=== PATIENT | female | born 1955 | race Caucasian/White ===

== ENCOUNTER 2018-02-27 04:25 | Emergency (ER) | payer BC ==
--- NOTE | 2018-02-27 04:34 | PDOC ---
Attending Attestation - ED Attending Attestation I have performed the following: I have examined & evaluated the patient, The case was reviewed & discussed with the resident, I agree w/resident's findings & plan
[2018-02-27 04:35] VITALS: BMI 30.2
[2018-02-27] MEDS ORDERED: methylPREDNISolone NA SUCC 125 MG/2 ML VIAL ONE (04:45)
[2018-02-27] MEDS ORDERED: FAMOTIDINE 20 MG/50 ML IVPB 20 MG/50 ML MG IVPB ONE ×2 (04:46→04:49)
[2018-02-27] MEDS ORDERED: methylPREDNISolone NA SUCC 125 MG/2 ML VIAL IVPUSH ONE (04:49)
[2018-02-27] MEDS ORDERED: SODIUM CHLORIDE 1,000 ML IV STA (04:53)
--- NOTE | 2018-02-27 04:57 | PDOC ---
History of Present Illness <Fiona Orourke - Last Filed: 02/27/18 08:54> - General History Source: Patient Exam Limitations: No Limitations - History of Present Illness Initial Comments: 02/27/18 04:52 HISTORY OF PRESENT ILLNESS: This 62-year-old woman he denies medical history presents emergency department for evaluation of throat itching and pruritus. Patient reports she was experiencing some frequency and dysuria and took Pyridium which was prescribed to work couple of months ago. After approximately 45 minutes after taking the Pyridium, patient didn't to experience itching in her throat and generalized pruritus. Patient denies difficulty swallowing, shortness of breath, drooling. She denies any new medications, soaps, shampoos, foods, cosmetics or laundry soaps or fabric softeners. No recent travel or sick contacts. PAST MEDICAL HISTORY: Denies past medical history SURGICAL HISTORY: Denies ALLERGIES: No known drug allergies REVIEW OF SYSTEMS General/Constitutional: Denies fever or chills. Denies weakness, weight change. HEENT: Denies change in vision. Denies ear pain or discharge. Denies sore throat. +throat itching. Cardiovascular: Denies chest pain or shortness of breath. Respiratory: Denies cough, wheezing, or hemoptysis. Gastrointestinal: Denies nausea, vomiting, diarrhea or constipation. Denies rectal bleeding. Genitourinary: +dysuria, frequency. Musculoskeletal: Denies joint or muscle swelling or pain. Denies neck or back pain. Skin and breasts: Generalized pruritis. Neurologic: Denies headache, vertigo, loss of consciousness, or loss of sensation. Psychiatric: Denies depression or anxiety. Endocrine: Denies increased thirst. Denies abnormal weight change. Hematologic/Lymphatic: Denies anemia, easy bleeding, or history of blood clots. Allergic/Immunologic: Denies hives or skin allergy. Denies latex allergy. PHYSICAL EXAM General Appearance: Well-appearing, appropriately dressed. No apparent distress , no intoxication. HEENT: EOMI, PERRLA, normal ENT inspection, normal voice, TMs normal, pharynx normal. No conjunctival pallor. No photophobia, scleral icterus. No oral edema noted. Neck: Supple. Trachea midline. No tenderness, rigidity, carotid bruit, stridor , lymphadenopathy, or thyromegaly. Respiratory/Chest: Lungs CTAB. No shortness of breath, chest tenderness, respiratory distress, accessory muscle use. No crackles, rales, rhonchi, stridor , wheezing, dullness Cardiovascular: RRR. S1, S2. No JVD, murmur, bradycardia, tachycardia. Vascular Pulses: Dorsalis-Pedis (R): 2+, Dorsalis-Pedis (L): 2+ Gastrointestinal/Abdominal: Normal bowel sounds. Abdomen soft, non-distended. No tenderness or rebound tenderness. No organomegaly, pulsatile mass, guarding, hernia, hepatomegaly, splenomegaly. Lymphatic: No adenopathy, tenderness. Musculoskeletal/Extremities: Normal inspection. FROM of all extremities, normal capillary refill. Pelvis Stable. No CVA tenderness. No tenderness to extremities, pedal edema, swelling, erythema or deformity. Integumentary: Appropriate color, dry, warm. No cyanosis, erythema, jaundice or rash. Multiple reddened areas to arms and trunk c/w scratching. Neurologic: irrigation equipment remover II-XII intact. Fully oriented, alert. Appropriate mood/affect. Motor strength 5/5. No appreciable EOM palsy, facial droop or sensory deficit. <Agapito Limon - Last Filed: 03/02/18 13:28> - General Chief Complaint: Allergic Reaction Stated Complaint: ALLERGIC REACTION Time Seen by Provider: 02/27/18 04:48 Past History <Fiona Orourke - Last Filed: 02/27/18 08:54> - Surgical History Cholecystectomy: Yes - Suicide/Smoking/Psychosocial Hx Smoking History: Never smoked Have you smoked in the past 12 months: No Information on smoking cessation initiated: No Hx Alcohol Use: No Drug/Substance Use Hx: No Substance Use Type: None Hx Substance Use Treatment: No <Agapito Limon - Last Filed: 03/02/18 13:28> - Past Medical History Allergies/Adverse Reactions: Allergies Allergy/AdvReac Type Severity Reaction Status Date / Time phenazopyridine Allergy Verified 02/27/18 05:00 [From Pyridium] Home Medications: Ambulatory Orders No Home Medications 0 dose .ROUTE UTDICT 04/01/13 Cephalexin Monohydrate [Keflex -] 500 mg PO BID #14 capsule 02/27/18 *Physical Exam - Vital Signs Last Vital Signs Temp Pulse Resp BP Pulse Ox 97.9 F 74 18 113/50 L 99 11/11/18 07:10 02/27/18 07:10 02/27/18 07:10 02/27/18 07:10 02/27/18 07:10 <Fiona Orourke - Last Filed: 02/27/18 08:54> - Vital Signs Last Vital Signs Temp Pulse Resp BP Pulse Ox 97.6 F 98 H 22 H 150/68 99 02/27/18 04:34 02/27/18 04:34 02/27/18 04:34 02/27/18 04:34 02/27/18 04:34 <Agapito Limon - Last Filed: 03/02/18 13:28> ED Treatment Course - ADDITIONAL ORDERS Additional order review: Laboratory Results 02/27/18 05:05 Urine Color Yellow Urine Appearance Clear Urine pH 6.0 Ur Specific [place] 1.001 L Urine Protein Negative Urine Glucose (UA) Negative Urine Ketones Negative Urine Blood 2+ H Urine Nitrite Negative Urine Bilirubin Negative Urine Urobilinogen Negative Ur Leukocyte Esterase 2+ H Urine WBC (Auto) 22 Urine RBC (Auto) <1 Ur Epithelial Cells Rare Urine Bacteria Few - Medications Given in the ED: ED Medications Discontinued Medications Generic Name Dose Route Start Last Admin Trade Name Freq PRN Reason Stop Dose Admin Diphenhydramine HCl 50 mg 02/27/18 04:49 02/27/18 04:50 Benadryl Injection - IVPUSH 02/27/18 04:50 50 mg ONCE ONE Administration Famotidine/Sodium Chloride 20 mg in 50 mls @ 100 mls/hr 02/27/18 04:49 04:50 Pepcid 20 Mg Premixed Ivpb - IVPB 02/27/18 05:18 100 mls/hr ONCE ONE Administration Sodium Chloride 1,000 mls @ 1,000 mls/hr 02/27/18 04:53 02/27/18 04:55 Normal Saline - IV 02/27/18 05:52 1,000 mls/hr ASDIR STA Administration Ceftriaxone Sodium 1,000 mg/ 50 mls @ 100 mls/hr 02/27/18 05:42 02/27/18 06: 27 Dextrose IVPB 02/27/18 06:11 100 mls/hr ONCE ONE Administration Methylprednisolone Sodium Succinate 125 mg 02/27/18 04:49 02/27/18 04:50 Solu-Medrol - IVPUSH 02/27/18 04:50 125 mg ONCE ONE Administration <Fiona Orourke - Last Filed: 02/27/18 08:54> - Medications Given in the ED: ED Medications Discontinued Medications Generic Name Dose Route Start Last Admin Trade Name Rose Marie PRN Reason Stop Dose Admin Diphenhydramine HCl 50 mg 02/27/18 04:49 02/27/18 04:50 Benadryl Injection - IVPUSH 02/27/18 04:50 50 mg ONCE ONE Administration Methylprednisolone Sodium Succinate 125 mg 02/27/18 04:49 02/27/18 04:50 Solu-Medrol - IVPUSH 02/27/18 04:50 125 mg ONCE ONE Administration <Agapito Limon - Last Filed: 03/02/18 13:28> Medical Decision Making - Medical Decision Making 02/27/18 04:53 A/P: 62-year-old woman with pruritus and throat itching after taking Pyridium Oropharynx without edema, erythema or exudates No stridor noted Lungs clear to auscultation bilaterally Multiple red asher on the patient's body consistent with scratches. No wheals or urticaria present working dx- drug allergy to pyridium +/- UTI Pepcid, Benadryl, Solu-Medrol, IV fluids, urine, reassess 02/27/18 05:45 UA reveals 2+ blood, 2+ leukoesterase and 22 WBCs. I'll treat the patient with ceftriaxone 1 g IV now and continue on Keflex as an outpatient. Patient no longer feels itching or throats scratching. I will monitor the patient and evaluate after 6 hours from medications <Agapito Limon - Last Filed: 03/02/18 13:28> *DC/Admit/Observation/Transfer <Fiona Orourke - Last Filed: 02/27/18 08:54> <Agapito Limon - Last Filed: 03/02/18 13:28> Diagnosis at time of Disposition: Allergic reaction caused by a drug Qualifiers: Encounter type: initial encounter Qualified Code(s): T78.40XA - Allergy, unspecified, initial encounter UTI (urinary tract infection) Qualifiers: Urinary tract infection type: acute cystitis Hematuria presence: without hematuria Qualified Code(s): N30.00 - Acute cystitis without hematuria - Discharge Dispostion Disposition: HOME Condition at time of disposition: Improved - Prescriptions Prescriptions: Cephalexin Monohydrate [Keflex -] 500 mg PO BID #14 capsule - Referrals Referrals: Agapito Carlson MD [Staff Physician] - - Patient Instructions Printed Discharge Instructions: DI for Adverse Drug Reaction -- Allergic Print Language: GIBR[place]AR[place]
[2018-02-27 05:21] LABS: URINE APPEARANCE CLEAR; URINE BILIRUBIN NEGATIVE (<2.0 mg/dL); URINE COLOR YELLOW; URINE GLUCOSE (UA) NEGATIVE (NEGATIVE); URINE KETONE NEGATIVE (NEGATIVE); URINE LEUK ESTERASE 2+ (NEGATIVE); URINE NITRITE NEGATIVE (NEGATIVE); URINE PROTEIN NEGATIVE (NEGATIVE); URINE UROBILINOGEN NEGATIVE mg/dL (0.2-1.0)
[2018-02-27 05:32] LABS: EPI CELLS RARE /HPF (FEW); URINE BACTERIA FEW /hpf (NONE SEEN)
[2018-02-27] MEDS ORDERED: CEFTRIAXONE 1,000 MG in DEXTROSE 5%-WATER - 50 ML IVPB ONE (05:42)
[2018-02-27] MEDS ORDERED: CEFTRIAXONE 1 GM/50 ML BAG ONE (06:26)
--- NOTE | 2018-02-27 08:58 | PDOC ---
*Physical Exam - Vital Signs Last Vital Signs Temp Pulse Resp BP Pulse Ox 97.9 F 74 18 113/50 L 99 02/27/18 07:10 02/27/18 07:10 02/27/18 07:10 02/27/18 07:10 02/27/18 07:10 - Physical Exam General Appearance: Yes: Nourished Neck: positive: Trachea midline Respiratory/Chest: positive: Lungs Clear, Normal Breath Sounds Cardiovascular: positive: Regular Rhythm, Regular Rate, S1, S2 ED Treatment Course - ADDITIONAL ORDERS Additional order review: Laboratory Results 02/27/18 05:05 Urine Color Yellow Urine Appearance Clear Urine pH 6.0 Ur Specific [place] 1.001 L Urine Protein Negative Urine Glucose (UA) Negative Urine Ketones Negative Urine Blood 2+ H Urine Nitrite Negative Urine Bilirubin Negative Urine Urobilinogen Negative Ur Leukocyte Esterase 2+ H Urine WBC (Auto) 22 Urine RBC (Auto) <1 Ur Epithelial Cells Rare Urine Bacteria Few - Medications Given in the ED: ED Medications Discontinued Medications Generic Name Dose Route Start Last Admin Trade Name Rose Marie PRN Reason Stop Dose Admin Diphenhydramine HCl 50 mg 02/27/18 04:49 02/27/18 04:50 Benadryl Injection - IVPUSH 02/27/18 04:50 50 mg ONCE ONE Administration Famotidine/Sodium Chloride 20 mg in 50 mls @ 100 mls/hr 02/27/18 04:49 04:50 Pepcid 20 Mg Premixed Ivpb - IVPB 02/27/18 05:18 100 mls/hr ONCE ONE Administration Sodium Chloride 1,000 mls @ 1,000 mls/hr 02/27/18 04:53 02/27/18 04:55 Normal Saline - IV 02/27/18 05:52 1,000 mls/hr ASDIR STA Administration Ceftriaxone Sodium 1,000 mg/ 50 mls @ 100 mls/hr 02/27/18 05:42 02/27/18 06: 27 Dextrose IVPB 02/27/18 06:11 100 mls/hr ONCE ONE Administration Methylprednisolone Sodium Succinate 125 mg 02/27/18 04:49 02/27/18 04:50 Solu-Medrol - IVPUSH 02/27/18 04:50 125 mg ONCE ONE Administration Medical Decision Making - Medical Decision Making 02/27/18 08:57 62yo F with allergic reaction from pyridiuj. states she was taking for dysuria, frequency. started to have itchy rash. was switched to cephalosporin here in ED overnight. no f/c no n/v overall feeling better after meds given for allergy. ua positive for uti. will dc on keflex. dc home. allergy to pyridium. *DC/Admit/Observation/Transfer Diagnosis at time of Disposition: Allergic reaction caused by a drug Qualifiers: Encounter type: initial encounter Qualified Code(s): T78.40XA - Allergy, unspecified, initial encounter UTI (urinary tract infection) Qualifiers: Urinary tract infection type: acute cystitis Hematuria presence: without hematuria Qualified Code(s): N30.00 - Acute cystitis without hematuria - Discharge Dispostion Disposition: HOME Condition at time of disposition: Improved - Prescriptions Prescriptions: Cephalexin Monohydrate [Keflex -] 500 mg PO BID #14 capsule - Referrals Referrals: Agapito Carlson MD [Staff Physician] - - Patient Instructions Printed Discharge Instructions: DI for Adverse Drug Reaction -- Allergic Print Language: ARMENIAN - Post Discharge Activity
[2018-02-27 09:08] VITALS: BP 119/53; PULSE 77; TEMP 98
== END 2018-02-27 09:19 | disposition home or self-care (01) ==
LOC: JER 04:25
PROC: 3E0337Z Introduction of Electrolytic and Water Balance Substance into Peripheral Vein, Percutaneous Approach (ICD-10-PCS; principal; 2018-02-27)
PROC: 3E033GC Introduction of Other Therapeutic Substance into Peripheral Vein, Percutaneous Approach (ICD-10-PCS; 2018-02-27)
PROC: 3E03329 Introduction of Other Anti-infective into Peripheral Vein, Percutaneous Approach (ICD-10-PCS; 2018-02-27)
PROC: 3E033GC Introduction of Other Therapeutic Substance into Peripheral Vein, Percutaneous Approach (ICD-10-PCS; 2018-02-27)
PROC: 3E0333Z Introduction of Anti-inflammatory into Peripheral Vein, Percutaneous Approach (ICD-10-PCS; 2018-02-27)
DX: L29.8 Other pruritus (principal); T39.8X5A Adverse effect of other nonopioid analgesics and antipyretics, not elsewhere classified, initial encounter; N39.0 Urinary tract infection, site not specified
CPT/HCPCS: 81003; 81015; 87086; 99283-25; J7030